=== PATIENT | male | born 1990 | race Two or more races ===

== ENCOUNTER 2020-08-13 14:12 | Emergency (ER) | payer OTHER, SELFPAY ==
--- NOTE | ~2020-08-13 | XR_ITS ---
EXAMINATION: XR CHEST CLINICAL INFORMATION: Left-sided chest pain COMPARISON: None TECHNIQUE: Frontal view of the chest was obtained. FINDINGS: No significant abnormality is noted involving the heart, lungs, mediastinum, bony thorax or soft tissues. XR/XR chest 1V IMPRESSION: Unremarkable examination.
[2020-08-13 14:16] VITALS: BP 159/93; PULSE 85; RESP 18; TEMP 36.6; O2SAT 99; BMI 28.7
[2020-08-13 16:00] VITALS: BP 132/84; PULSE 68; RESP 16; TEMP 36.7; O2SAT 99
--- NOTE | 2020-08-13 17:05 | ED_ITS ---
HPI - Chest Pain General Chief Complaint: Chest Pain Stated Complaint: CHEST DISCOMFORT Time Seen by Provider: 08/13/20 16:55 Source: patient Mode of arrival: ambulatory History of Present Illness HPI narrative: Patient comes emergency room complaining of sharp chest pain on the left side. Patient had 1 episode of left sided chest pain yesterday, self- resolved, today patient had a similar episode, radiating towards the shoulder, causing nausea. Patient states that at this time he has no chest pain, only feels nauseous. The nausea started 3 days ago. Patient is concerned that a co- worker tested positive for COVID, and is concerned of an exposure. Patient denies coughing, fever, no chills, no generalized body aches MD complaint: chest pain Related Data Allergies Allergy/AdvReac Type Severity Reaction Status Date / Time No Known Allergies Allergy Verified 08/13/20 16:56 Review of Systems Review of Systems: Constitutional : No Weight loss, No Fever, No Chills, No Night Sweats, No Fatigue, No Malaise ENT/Mouth : No Hearing loss, No Ear Pain, No Nasal Congestion, No Sinus Pain, No Hoarseness, No sore throat, No Rhinorrhea, No Swallowing Difficulty Eyes: No Eye Pain, No Swelling, No Redness, No Foreign Body, No Discharge, No Vision Changes Cardiovascular : Sharp intermittent left-sided chest pain, No SOB, No Dyspnea on Exertion, No Orthopnea, No Edema, No Palpitations Respiratory : No Cough, No Sputum, No Wheezing, No Smoke Exposure, No Dyspnea Gastrointestinal : No Nausea, No Vomiting, No Diarrhea, No Constipation, No abdominal Pain, No Hematochezia, No Melena Genitourinary : no irregular bleeding, No Dysuria, No Urinary Frequency, No H ematuria, No Urinary Incontinence, No Urgency, No Flank Pain, No Urinary Flow Changes, No Hesitancy Musculoskeletal : No joint pain, No Myalgias, No Joint Swelling Skin : No Skin Lesions, No rash Neuro : No Weakness, No Numbness, No Paresthesias, No Loss of Consciousness, No Dizziness, No Headache Psych : No Anxiety/Panic, No Depression, No SI/HI/AH/VH, No Social Issues, Heme/Lymph: No Bruising, No Bleeding,No Lymphadenopathy Endocrine : No Polyuria, No Polydipsia, No Temperature Intolerance [facility] Past Medical History Medical History No significant past medical history Social History Social History Alcohol intake: current Alcohol intake frequency: a few times a month Smoking Status: Current every day smoker Use of substances other than those prescribed or required for medical reasons: No Advance Directives: No Advance Directives Information Provided: Yes Physical Exam Vital Signs: Vital Signs: Last Vital Signs Temp 98.1 F 08/13/20 16:00 Pulse 80 08/13/20 18:22 Resp 16 08/13/20 18:22 BP 133/88 08/13/20 18:22 Pulse Ox 99 08/13/20 18:22 Body Mass Index 28.7 Appearance: Alert. Oriented X3. No acute distress. Eyes: Pupils equal, round and reactive to light. ENT: Pharynx normal. Neck: Normal inspection. Neck supple. No lymph nodes noted. No crepitus CVS: Normal heart rate and rhythm. Pulses normal. Normal S1 and S2 Respiratory: No respiratory distress. Breath sounds normal. No Wheezing. No rales Abdomen: Soft and nontender. No rigidity. No distention. good BS x4 Skin: Skin warm and dry. Normal skin color. Normal skin turgor. Extremities: No lower extremity edema. No lower extremity edema. No Lacerations. No Rash Neuro: Oriented X 3. No motor deficit. No sensory deficit. Moving all ex termities. No slurred speech. Course Course Course Narrative: Patient remains asymptomatic. Patient's pain likely musculoskeletal. D-dimer negative. COVID test negative. MDM - Chest Pain Lab Data Result diagrams: 08/13/20 17:20 08/13/20 17:20 Labs: Lab Results 08/13/20 08/13/20 08/13/20 Range/Units 17:20 17:20 17:20 WBC 6.4 (4.8-10.8) X10*3/uL RBC 4.97 (4.60-5.80) X10*6/uL Hgb 14.7 (14.0-18.0) g/dl Hct 42.3 (42-52) % MCV 85.1 (80-98) fL MCH 29.6 (27.0-33.0) pg MCHC 34.8 (31.0-36.0) g/dl RDW 12.0 (11.0-16.0) % Plt Count 252 (160-400) X10*3/uL MPV 10.5 (9.4-12.4) fL Immature Gran % (Auto) 0.3 (0.0-0.4) % Neut % (Auto) 58.3 (45-73) % Lymph % (Auto) 31.3 (20-40) % [place] % (Auto) 6.6 (2-11) % Eos % (Auto) 3.3 (0-4) % Baso % (Auto) 0.2 (0-2) % Lymph # (Auto) 2.0 (1.2-4.9) X10*3/uL [place] # (Auto) 0.4 (0.1-1.2) X10*3/uL Eos # (Auto) 0.2 (0.0-0.4) X10*3/uL Baso # (Auto) 0.0 (0.0-0.2) X10*3/uL Abs Immat Gran (auto) 0.02 (0.00-0.03) X10*3/uL Absolute Neuts (auto) 3.7 (2.0-8.3) X10*3/uL Absolute Nucleated RBC 0.000 (0.0-0.012) X10*3/uL Nucleated RBC % (auto) 0.0 (0.0-0.2) /100WBC D-Dimer < 200 NG/ML Sodium 139 (135-145) mmol/L Potassium 3.9 (3.3-5.1) mmol/L Chloride 101 (96-108) mmol/L Carbon Dioxide 28 (22-29) mmol/L Anion Gap 14 (12-20) BUN 14 (9-16) mg/dL Creatinine 0.85 (0.5-1.4) mg/dL Estim Creat Clear Calc 142.6 Estimated GFR > 60 Random Glucose 112 (60-115) mg/dL Calcium 8.9 (8.4-10.2) mg/dL Troponin I High Sens (<3.5-35.0) ng/L COVID-19 (JESS) (Negative) COVID-19 Clin Com 08/13/20 08/13/20 Range/Units 17:20 17:20 WBC (4.8-10.8) X10*3/uL RBC (4.60-5.80) X10*6/uL Hgb (14.0-18.0) g/dl Hct (42-52) % MCV (80-98) fL MCH (27.0-33.0) pg MCHC (31.0-36.0) g/dl RDW (11.0-16.0) % Plt Count (160-400) X10*3/uL MPV (9.4-12.4) fL Immature Gran % (Auto) (0.0-0.4) % Neut % (Auto) (45-73) % Lymph % (Auto) (20-40) % [place] % (Auto) (2-11) % Eos % (Auto) (0-4) % Baso % (Auto) (0-2) % Lymph # (Auto) (1.2-4.9) X10*3/uL [place] # (Auto) (0.1-1.2) X10*3/uL Eos # (Auto) (0.0-0.4) X10*3/uL Baso # (Auto) (0.0-0.2) X10*3/uL Abs Immat Gran (auto) (0.00-0.03) X10*3/uL Absolute Neuts (auto) (2.0-8.3) X10*3/uL Absolute Nucleated RBC (0.0-0.012) X10*3/uL Nucleated RBC % (auto) (0.0-0.2) /100WBC D-Dimer NG/ML Sodium (135-145) mmol/L Potassium (3.3-5.1) mmol/L Chloride (96-108) mmol/L Carbon Dioxide (22-29) mmol/L Anion Gap (12-20) BUN (9-16) mg/dL Creatinine (0.5-1.4) mg/dL Estim Creat Clear Calc Estimated GFR Random Glucose (60-115) mg/dL Calcium (8.4-10.2) mg/dL Troponin I High Sens < 3.5 (<3.5-35.0) ng/L COVID-19 (JESS) Negative (Negative) COVID-19 Clin Com See Note ECG Data ECG #1: Attestation: I personally reviewed and interpreted this ECG as follows: (Sinus rhythm, heart rate 78, no ST segment depression or elevation, QTC 417) Scores Heart Score History: -0- slightly suspicious ECG: -0- normal Age: -0- < or = 45 Risk factory: -0- no risk factors known Troponin: -0- < or = normal limit Score: 0 Risk: 1.7% Discharge Plan Discharge Clinical Impression: Atypical chest pain Patient Disposition: Home, Self-Care Instructions: Chest Pain (ED) Additional Instructions: You tested negative for COVID-19. If he have any COVID like symptoms. Please follow-up with her primary care physician and refrain from going to work/school. Please follow-up with your primary care physician tomorrow. If you have any worsening or new symptoms, please return to the emergency room or call 911
[2020-08-13 17:27] LABS: MANUAL DIFF FLAG NO
[2020-08-13 17:30] LABS: Basophils Percent Auto 0.2 % (0-2); Eosinophils Absolute Auto 0.2 X10*3/uL (0.0-0.4); Eosinophils Percent Auto 3.3 % (0-4); Hematocrit 42.3 % (42-52); Hemoglobin 14.7 g/dl (14.0-18.0); Imm Gran Abs Auto 0.02 X10*3/uL (0.00-0.03); Imm Gran Pct Auto 0.3 % (0.0-0.4); Lymphocytes Percent Auto 31.3 % (20-40); Mean Corpuscular HGB Conc 34.8 g/dl (31.0-36.0); Mean Corpuscular Hemoglobin 29.6 pg (27.0-33.0); Mean Corpuscular Volume 85.1 fL (80-98); Mean Platelet Volume 10.5 fL (9.4-12.4); Monocytes Absolute Auto 0.4 X10*3/uL (0.1-1.2); Monocytes Percent Auto 6.6 % (2-11); Neutrophils Absolute Auto 3.7 X10*3/uL (2.0-8.3); Neutrophils Percent Auto 58.3 % (45-73); Platelet Count 252 X10*3/uL (160-400); Red Blood Count 4.97 X10*6/uL (4.60-5.80); White Blood Count 6.4 X10*3/uL (4.8-10.8)
[2020-08-13 17:53] LABS: Anion Gap 14 (12-20); Blood Urea Nitrogen 14 mg/dL (9-16); Calcium 8.9 mg/dL (8.4-10.2); Carbon Dioxide 28 mmol/L (22-29); Chloride 101 mmol/L (96-108); Creatinine Clr Calc Pharmacy 142.6; Estimated Glomerular Filt Rate > 60; Glucose Random 112 mg/dL (60-115); Potassium 3.9 mmol/L (3.3-5.1); Sodium 139 mmol/L (135-145)
[2020-08-13 17:55] LABS: D Dimer < 200 NG/ML
[2020-08-13 17:57] LABS: COVID-19 Test Negative (Negative)
[2020-08-13 18:00] LABS: Troponin-I High Sensitivity < 3.5 ng/L (<3.5-35.0)
[2020-08-13 18:22] VITALS: BP 133/88; PULSE 80; RESP 16; O2SAT 99
--- NOTE | 2020-08-15 07:40 | ECG_ITS ---
Test Reason : CHEST PAIN Blood Pressure : / mmHG Vent. Rate : 078 BPM Atrial Rate : 078 BPM P-R Int : 132 ms QRS Dur : 094 ms QT Int : 366 ms P-R-T Axes : 036 063 033 degrees QTc Int : 417 ms Normal sinus rhythm Normal ECG No previous ECGs available Referred By: Roxane Solorzano Electronically Signed By:Renan Toussaint
== END 2020-08-13 19:01 | disposition home or self-care (01) ==
PROVIDERS: Emergency Provider Emergency Medicine
DX: R07.89 Other chest pain (principal); Z20.822 Contact with and (suspected) exposure to COVID-19; F17.200 Nicotine dependence, unspecified, uncomplicated
CPT/HCPCS: 36415; 71045; 80048; 84484; 85025; 85379; 87635; 93005; 99283; 99285

== ENCOUNTER → 2022-06-21 12:45 | Outpatient (BNVA) | payer OTHER, SELFPAY | PROVIDERS: Visit Provider Physician Assistant Medical | DX: S83.8X1A Sprain of other specified parts of right knee, initial encounter (principal); X50.1XXA Overexertion from prolonged static or awkward postures, initial encounter | CPT/HCPCS: 73564; 99203 ==

== ENCOUNTER → 2022-10-25 12:04 | Outpatient (BNVA) | payer OTHER, SELFPAY | PROVIDERS: Visit Provider Internal Medicine | DX: S39.012A Strain of muscle, fascia and tendon of lower back, initial encounter (principal); V89.0XXA Person injured in unspecified motor-vehicle accident, nontraffic, initial encounter; R51.9 Headache, unspecified | CPT/HCPCS: 99202 ==

== ENCOUNTER → 2023-06-09 13:36 | Outpatient (BNVA) | payer OTHER, SELFPAY | PROVIDERS: Visit Provider Physician Assistant | DX: S83.92XA Sprain of unspecified site of left knee, initial encounter (principal); X50.1XXA Overexertion from prolonged static or awkward postures, initial encounter | CPT/HCPCS: 99203 ==

== ENCOUNTER → 2023-06-16 15:07 | Outpatient (BNVA) | payer OTHER, SELFPAY | PROVIDERS: Visit Provider Physician Assistant | DX: S83.92XD Sprain of unspecified site of left knee, subsequent encounter (principal); X50.1XXD Overexertion from prolonged static or awkward postures, subsequent encounter | CPT/HCPCS: 99213 ==

== ENCOUNTER 2025-01-17 08:54 | Outpatient (REF) | payer OTHER, SELFPAY ==
--- NOTE | ~2025-01-17 | XR_ITS ---
EXAMINATION: XR WRIST, RIGHT CLINICAL INFORMATION: M79.641 - Pain in right hand COMPARISON: None available. TECHNIQUE: PA, lateral, oblique, and scaphoid views of the right wrist. FINDINGS: There is widening of scapholunate interval. There is dorsal tilt of lunate relative to scaphoid. Scapholunate angle measures 77 degrees. No other abnormalities are evident. XR/XR wrist RT w scaphoid IMPRESSION: Scapholunate ligament tear with DISI deformity. Electronically signed by: Jose Sales MD 01/17/2025 10:43 AM EDT
--- OUTSIDE RECORDS SUMMARY | 2025-01-17 09:28 | XMS_ITS | Clinical Summary ---
Author Organization [address] [facility] Address [address] [place] [address] Phone Care Team Providers Care Manager Electrical Name Role Phone Freddie Cruz MD Primary Care Provider Allergies No known active allergies Medications sertraline (ZOLOFT) 100 mg tablet 2 tablets (200 mg total). 2 Active traZODone (DESYREL) 150 mg tablet Take 1 tablet (150 mg total) by mouth at bedtime. Active ondansetron ODT (ZOFRAN-ODT) 4 mg disintegrating tablet Dissolve 1 tablet (4 mg total) on top of the tongue every 8 (eight) hours if needed for nausea or vomiting. 30 tablet 6 4 Active Medical History Medical History Date Comments Hernia, inguinal Social History Tobacco Use Types Packs/Day Years Used Date Smoking Tobacco: Never Assessed Sex and Gender Information Value Date Recorded Sex Assigned at Not on file Legal Sex Male 12:53 AM EST Gender Identity Not on file Sexual Orientation Not on file Obstetrics History Last Filed Vital Signs Vital Sign Reading Time Taken Comments Blood Pressure 140/96 06/19/2024 5:07 PM EST Pulse 72 06/19/2024 5:07 PM EST Temperature 37 C (98.6 F) 06/19/2024 5:07 PM EST Respiratory Rate 18 06/19/2024 5:07 PM EST Oxygen Saturation 98% 06/19/2024 5:07 PM EST Inhaled Oxygen Concentration - - Weight 81.6 kg (180 lb) 06/19/2024 5:07 PM EST Height 177.8 cm (5' 10 ) 06/19/2024 5:07 PM EST Body Mass Index 25.83 06/19/2024 5:07 PM EST Plan of Treatment Health Maintenance Due Date Last Done Comments Hepatitis B Vaccines (1 of 3 - 19+ 3-dose series) 2008 Cholesterol Screening (Lipid Panel) 04/17/2022 HIV Screening 04/17/2022 Hepatitis C Screening 04/17/2022 Social Influencers of Health Screening 04/17/2022 Depression Screening 05/15/2024 COVID-19 Vaccine (1 - 2023-2 5 season) 2025 Influenza Vaccine (#1) 2025 , 05/31/2023, 01/31/2021 DTaP,Tdap,and Td Vaccines (2 - Td or Tdap) 08/11/2030 08/11/2020 HIB Vaccines Aged Out No longer eligi ble based on patient's age to complete this topic HPV Vaccines Aged Out No longer eligi ble based on patient's age to complete this topic Hepatitis A Vaccines Aged Out No long er eligible based on patient's age to complete this topic IPV Vaccines Aged Out No longer eligi ble based on patient's age to complete this topic MMR Vaccines Aged Out No longer eligi ble based on patient's age to complete this topic Meningococcal ACWY Vaccine Aged Out N o longer eligible based on patient's age to complete this topic Meningococcal B Vaccine Aged Out No l onger eligible based on patient's age to complete this topic Pneumococcal Vaccine: Pediatrics (0 to 5 Years) and At-Risk Patients (6 to 49 Years) Aged Out No longer eligible b ased on patient's age to complete this topic RSV Immunization Patients Under 20 months Aged Out No longer eligible b ased on patient's age to complete this topic Varicella Vaccines Aged Out No longer eligible based on patient's age to complete this topic Insurance [facility] Care Teams Manager Electrical Relationship Specialty Start Date End Date Freddie Cruz MD [address] [place] [phone] PCP - General 11/29/23
== END 2025-01-17 08:55 | disposition home or self-care (01) ==
LOC: HO.HOSX 08:54
DX: M79.641 Pain in right hand (principal); M25.331 Other instability, right wrist
CPT/HCPCS: 73110; 99202

== ENCOUNTER 2025-01-17 10:11 | Outpatient (AMB) | payer OTHER, SELFPAY ==
--- NOTE | 2025-01-17 10:23 | MHC.OFFVIS ---
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 Patient reports pain began ~ 1.5 month ago after using excessive force during an arm wrestle competition. Patient explains pain is on the dorsal aspect of the wrist without numbness or tingling. Denies any finger locking. He is not taking any pain medications at this time. He has not tried OT or hand brace. Denies previous injuries or surgeries to the right hand. 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 Patient reports pain began ~ 1.5 month ago after using excessive force during an arm wrestle competition. Patient explains pain is on the dorsal aspect of the wrist without numbness or tingling. Denies any finger locking. He is not taking any pain medications at this time. He has not tried OT or hand brace. Denies previous injuries or surgeries to the right hand. 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 Neuro: Normal sensation of the tips of all digits of the right hand at this time Vascular: Cap refill brisk Pain: Tenderness to palpation of the dorsal aspect of the right wrist, particularly over the scapholunate interval Some discomfort with range of motion of the right wrist ROM: Patient is able to flex the right wrist to approximately 80 degrees and extend to approximately 70 degrees, pain at both extremes of range of motion Skin: No lacerations or abrasions. General: No ecchymosis, erythema, or evidence of infection. Psych: Appears grossly normal Affect normal Attitude cooperative Results Reviewed Results Reviewed: X-rays obtained in the office today and independently reviewed by me, Everardo Russ PA-C, demonstrate significant scapholunate dissociation of the right wrist consistent with old scapholunate tear and developing SLAC wrist, as the patient has started to develop some carpal joint arthritis in his area. Assessment & Plan Assessment & Plan (1) Scapholunate dissociation of right wrist: Code(s): M25.331 - Other instability, right wrist Category: Medical Plan 1. Scapholunate dissociation of right wrist Patient is educated about this condition Patient is educated about the typical diagnostic and treatment course At this time, due to the patient's young age and pain, I feel it is best to obtain an MRI to see if there is anything repairable in terms of the scapholunate ligaments MRI ordered Patient is provided with a Velcro wrist splint to wear when his right wrist is particularly bothering him Patient is educated on conservative pain management measures, such as rest, ice, elevation, and Tylenol/ibuprofen as needed Patient will follow-up after MRI for results review and discussion of further treatment options if indicated, sooner with any acute concerns Orders: Orders XR wrist RT w scaphoid 01/17/25 M79.641 - Pain in right hand MR wrist RT wo con 01/17/25 M25.331 - Other instability, right wrist Coding Level of Care Code New Pt Level 3 (27841) Diagnoses Scapholunate dissociation of right wrist M25.331
[2025-01-17 10:24] VITALS: BMI 24.2
== END 2025-01-17 10:47 | disposition home or self-care (01) ==
LOC: HO.HOS 10:12
DX: M25.331 Other instability, right wrist (principal)
CPT/HCPCS: 99203

== ENCOUNTER → 2025-01-17 10:13 | Outpatient (BNV) | payer OTHER, SELFPAY | PROVIDERS: Visit Provider Radiology Diagnostic Radiology | DX: S61.511A Laceration without foreign body of right wrist, initial encounter (principal) | CPT/HCPCS: 73110 ==

== ENCOUNTER → 2025-02-01 14:51 | Outpatient (BNV) | payer OTHER, SELFPAY | PROVIDERS: Visit Provider Radiology Diagnostic Radiology | DX: S63.511A Sprain of carpal joint of right wrist, initial encounter (principal) | CPT/HCPCS: 73221 ==

== ENCOUNTER 2025-02-01 14:53 | Outpatient (REF) | payer OTHER, SELFPAY ==
--- NOTE | ~2025-02-01 | MR_ITS ---
CLINICAL HISTORY: M25.331 - Other instability, right wrist --- Additional Notes or Special Instructions: Scapholunate widening MR right wrist without gadolinium Comparison: DX/SR - XR WRIST NAVICULAR RIGHT - 01/17/25 10:13 EDT Findings: No acute fractures. No pathologic bone lesions. The trapezoid demonstrates area of localized bone marrow edema, 0.4 cm; osseous contusion. No effusion. Widening of the scapholunate intercarpal space with no ligaments identified. Flexor and extensor tendons are intact. The triangular fibrocartilage complex is intact. The flexor retinaculum is intact. Unremarkable median and ulnar nerves. Negative ulnar variance. IMPRESSION: 1. Widening of the scapholunate intercarpal space with no ligaments identified, suggesting scapholunate ligament tear. 2. Negative ulnar variance. This document has been electronically signed by: Nikolas Frankel MD on 02/06/2025 00:06:20
--- OUTSIDE RECORDS SUMMARY | 2025-02-01 14:55 | XMS_ITS | Clinical Summary ---
Author Organization 175 [facility] Address [address] [place] [address] Phone Care Team Providers Care Mail Distributor Name Role Phone Freddie Cruz MD Primary [...] patient's age to complete this topic Insurance [facility] Care Teams Mail Distributor Relationship Specialty Start Date End Date Freddie Cruz MD [address] [place] [phone] PCP - General 11/29/23
== END 2025-02-01 14:54 | disposition home or self-care (01) ==
LOC: HO.MRI 14:53
DX: M25.331 Other instability, right wrist (principal)
CPT/HCPCS: 73221

== ENCOUNTER 2025-03-04 14:47 | Outpatient (AMB) | payer OTHER, SELFPAY ==
[2025-03-04 15:11] VITALS: BMI 24.2
--- NOTE | 2025-03-04 15:11 | A.OFFVIS_ITS ---
Vital Signs 03/04/25 15:11 Height 5 ft 10 in Weight 169 lb BMI 24.2 Intake Visit Reasons: OV MR wrist RT Review Intake Note: Daniel 34 yr old male presents today for his MRI review for his right hand. States his pain fluctuate during the day. States no changes in medical history. Allergies No Known Allergies Allergy (Verified 03/04/25 15:16) HPI HPI OV MR wrist RT Review: Details: Daniel is a 34 year old right hand dominant man who presents for an MRI review of his right wrist pain. He injured his wrist on ~11/26/24, from excessive force during an arm wrestling competition. He says he was arm wrestling with a coworker when he felt a crack in his wrist. He was seen by EDEL Mcgee and given a wrist splint. He complains of intermittent dorsal wrist pain throughout the day. He also says this bothers him at night occasionally. Overall his wrist pain has improved since his injury. 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 Review of Systems Const All systems reviewed & are unremarkable except as noted in HPI and below Physical Exam Vital Signs: BMI result Body Mass Index 24.2 Const General: cooperative, healthy appearing and no acute distress Orientation/consciousness: patient oriented x3 HEENT Head: Yes normocephalic and Yes atraumatic Eyes EOM: EOMs intact bilaterally Resp Effort & Inspection: normal respiratory effort and able to speak in complete sentences Cardio Jugular venous distension: no JVD Skin General skin exam: turgor normal Rashes: no rashes Neuro General: patient oriented x3 Extrem Other: Evaluation of Right Upper Extremity: The patient is alert, oriented, and in no acute distress Neuro: Median, Ulnar, Radial nerves motor and sensory intact and sensation is normal to the tips of all digits Vascular: Cap refill brisk ROM: He can make a fist and extend all his digits Skin: No lacerations or abrasions. General: No Ecchymosis. No Erythema or evidence of infection. Radiographs: 3 views of the Right wrist were taken and viewed by me today in clinic. They show widening of the scapholunate interval and a DISI deformity on the lateral. No appreciable arthritic changes. Right wrist MRI: IMPRESSION: 1. Widening of the scapholunate intercarpal space with no ligaments identified, suggesting scapholunate ligament tear. 2. Negative ulnar variance. This document has been electronically signed by: Nikolas Frankel MD on 02/06/2025 Psych Appearance: grossly normal Affect: normal affect Attitude: cooperative Assessment & Plan Assessment & Plan (1) Right scapholunate ligament tear: Code(s): S63.8X1A - Sprain of other part of right wrist and hand, initial encounter Category: Medical Plan Assessment & Plan: 1. 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 He would likely benefit from a scapholunate ligament reconstruction procedure. While I perform scapholunate ligament repair, I think it is best to refer him to another hand surgeon who more frequently performs the scapholunate ligament reconstruction procedure. I we will work with Mallorie to find someone to refer him to, to discuss possible treatment options, including surgical intervention. [facility] and will likely need [facility] ap proval for any other referral. I discussed activity modification, he should limit or avoid activities which cause him pain He can follow up prn Scribed for Sandy Rodriguez MD by Miguel Angel Diallo, medical lab scientist, on 03/04/25 at 3:45 PM, EST. Coding Level of Care Code New Pt Level 4 (19640) Diagnoses Right scapholunate ligament tear S63.8X1A
--- OUTSIDE RECORDS SUMMARY | 2025-03-04 19:57 | XMS_ITS | Clinical Summary ---
Author Organization 175 [facility] Address [address] [place] [address] Phone Care Team Providers Care Candy Maker Name Role Phone Freddie Cruz MD Primary [...] of 3 - 19+ 3-dose series) 2008 HPV Vaccines (1 - 3-dose SCD M series) 2016 Cholesterol Screening (Lipid Panel) 04/17/2022 HIV Screening 04/17/2022 Hepatitis C Screening 04/17/2022 Social Influencers of Health Screening 04/17/2022 Depression Screening 05/15/2024 COVID-19 Vaccine (1 - 2023-2 5 season) 2025 Influenza Vaccine (#1) 2025 , 05/31/2023, 01/31/2021 DTaP,Tdap,and Td Vaccines (2 - Td or Tdap) 08/11/2030 08/11/2020 RSV Immunization Adult Patients (1 - 1-dose 75+ series) 2064 HIB Vaccines Aged Out No longer eligi [...] patient's age to complete this topic Insurance [facility] Care Teams Candy Maker Relationship Specialty Start Date End Date Freddie Cruz MD [address] [place] [phone] PCP - General 11/29/23
== END 2025-03-04 16:12 | disposition home or self-care (01) ==
LOC: HO.HOS 14:48
PROVIDERS: Visit Provider Orthopaedic Surgery
DX: S63.8X1A Sprain of other part of right wrist and hand, initial encounter (principal)
CPT/HCPCS: 99203

== ENCOUNTER → 2025-03-04 14:47 | Outpatient (BNVA) | payer OTHER, SELFPAY | PROVIDERS: Visit Provider Orthopaedic Surgery | DX: Z71.2 Person consulting for explanation of examination or test findings (principal); M25.531 Pain in right wrist; S63.8X1A Sprain of other part of right wrist and hand, initial encounter | CPT/HCPCS: 99202 ==